=== PATIENT | female | born 1995 | race Caucasian/White ===

== ENCOUNTER 2018-04-06 11:42 | Inpatient (IN) | payer OTHER ==
--- NOTE | 2018-04-06 12:30 | HP ---
General Information - Reason for Visit Elective induction - General Information Maternal Age: 22 Grav: 4 Para: 1 SAB: 1 IEA: 1 Estimated Due Date: 04/10/18 Determined By: LMP Maternal Blood Type and Rh: O Negative - Results this Serology/RPR Result: Non-Reactive Rubella Result: Immune HBsAg Result: Negative HIV Result: Negative GBS Culture Result: Negative Past Medical History Delivery History: Hx Uncomplicated Vaginal Delivery Delivery History Comment: macrosomia Past Medical History Comment: asthma Past Surgical History Comment: D&C 03/2014 for incomplete Family History Comment: Father with MS - Antepartal Records Antepartal Records: Reviewed, Complicated by: - Sono/dates discrepancy Review of Systems Constitutional: Comfortable CV Complaint: No Respiratory: Shortness of Breath: No Gastrointestinal: No Nausea/Vomiting Genitourinary: No Leaking Fluid Musculoskeletal: Back Pain, Pressure Neurological: No Headache Movement: Normal Exam Allergies/Adverse Reactions: Allergies No Known Allergies Allergy (Verified 04/06/18 12:28) - Measurements Pre- Weight: 151 lb - Exam Breast: - - soft, no masses Extremities: No Edema Heart: Normal Rhythm/Heart Sounds HEENT: No Significant Findings Lungs: Clear Bilaterally Reflexes: DTR 2+ Thyroid: No Thyromegaly - Ultrasound/Biophysical Profile Ultrasound Status: Not Done Targeted Exam Findings See L&D Outpatient Visit Provider Note for Findings: N/A Estimated Weight: EFW 8 lbs Cervical Exam: 5cm Effacement: 90% Station: -1 Presenting Part: Vertex Membrane Status: AROM - at 1215--clear fluid EFM Findings - External Monitor Findings Baseline Heart Rate: 145 External Monitor Findings: Accelerations Present, No Pattern of Variable or Late Decelerations, Variability Moderate External Monitor Findings Comment: category 1 Contractions: None Assessment/Plan - Assessment IUP at 39 wks for elective induction - Plan Plan Comment: AROM at 1215 Will start low dose pitocin Would like epidural when uncomfortable - Date/Time of Admission Date of Admission: 04/06/18 Time of Admission: 12:20
[2018-04-06] MEDS ORDERED: Oxytocin in LR* 20 UNITS/1,000 ML BAG IVPB ONE (12:32)
[2018-04-06] MEDS ORDERED: Oxytocin in LR* 20 UNITS/1,000 ML BAG IVPB SCH ×2 (13:00→16:00)
[2018-04-06 13:03] LABS: ABS Basophils 0.1 10^3/ul (0-0.2); ABS Eosinophils 0.2 10^3/ul (0-0.6); ABS Lymphocytes 1.4 10^3/ul (1.0-4.8); ABS Monocytes 0.7 10^3/ul (0-0.8); ABS Neutrophils 6.9 10^3/ul (1.5-7.7); ABS Nucleated RBC 0 10^3/ul; Eosinophil % 2.6 % (0-6); Hematocrit 30 % (35-47); Hemoglobin 9.8 g/dl (12.0-16.0); Lymphocyte % 15.5 % (25-47); Mean Corpuscular HGB Conc 33 g/dl (31-36); Mean Corpuscular Hemoglobin 26 pg (27-31); Mean Corpuscular Volume 80 fL (80-97); Nucleated Red Blood Cells % 0; Platelet Count 213 10^3/ul (150-450); Red Blood Count 3.76 10^6/ul (4.00-5.40); Red Cell Distribution Width 19 % (10.5-15); White Blood Count 9.3 10^3/ul (3.5-10.8)
[2018-04-06] MEDS ORDERED: OBEPIDURAL* 250 ML EPIDURAL ONE (13:46)
[2018-04-06] MEDS ORDERED: Sodium Citrate/Citric Acid* 15 ML UDC PO PRN (14:33)
[2018-04-06] MEDS ORDERED: Phenylephrine IV* 40 MCG/ML 10 ML SYRINGE IV PUSH PRN ×2 (14:33)
[2018-04-06] MEDS ORDERED: Famotidine TAB* 20 MG PO PRN (14:33)
[2018-04-06] MEDS ORDERED: EPHEDrine (Pressors)* 50 MG/ML VIAL IV PUSH PRN ×2 (14:33)
[2018-04-06] MEDS ORDERED: OBEPIDURAL* 250 ML EPIDURAL SCH (15:00)
--- NOTE | 2018-04-06 15:48 | PROCNOTE ---
[facility]: Delivery Note - Nursery Level of Nursery: Regular/Bedside - Perineum Perineal Injury: None/Intact - Risk for Falls Delivered OB Patient- Risk for Falls: Low Hematocrit (<29) Fall Risk: Patient is at High Risk for Falls - Additional Delivery Notes Additional Delivery Notes: Anterior lip, 0 station at 1520 Fully, +1 at 1525, prepared for delivery and pushing begun at 1526 SVB, LMC, OA over intact perineum at 1533 Infant to maternal abd. Apgars 9/9 Placenta Emani at 1537 FF with massage, IV with pitocin running. EBL 100cc Mother and baby in stable condition
[2018-04-06] MEDS ORDERED: Witch Hazel PAD* JAR TOPICAL PRN (15:50)
[2018-04-06] MEDS ORDERED: Glycerin ADULT SUPP PR PRN (15:50)
[2018-04-06] MEDS ORDERED: Acetaminophen TAB* 325 MG PO PRN (15:50)
[2018-04-06] MEDS ORDERED: RHO D Immune Globulin (HUMAN)* 300 MCG = 1,500 I.U. INJ IM ONE (15:50)
[2018-04-06] MEDS ORDERED: Dibucaine 1% 28.35 GM TUBE PR PRN (15:50)
[2018-04-06] MEDS: Docusate CAP* 100 MG PO SCH (20:46)
[2018-04-06] MEDS: Mometasone/Formoter 200/5 MDI INH SCH (21:58)
[2018-04-07] MEDS: Ibuprofen TAB* 600 MG PO PRN ×3 (00:41→21:14)
[2018-04-07 06:53] LABS: Hematocrit 27 % (35-47); Hemoglobin 8.9 g/dl (12.0-16.0); Mean Corpuscular HGB Conc 33 g/dl (31-36); Mean Corpuscular Hemoglobin 26 pg (27-31); Mean Corpuscular Volume 80 fL (80-97); Mean Platelet Volume 7.9 um3 (7.4-10.4); Platelet Count 162 10^3/ul (150-450); Red Blood Count 3.38 10^6/ul (4.00-5.40); Red Cell Distribution Width 20 % (10.5-15); White Blood Count 8.9 10^3/ul (3.5-10.8)
[2018-04-07] MEDS: Ferrous Gluconate TAB* 324 MG TAB PO SCH ×2 (08:38→19:40)
[2018-04-07] MEDS: Docusate CAP* 100 MG PO SCH ×3 (08:38→19:40)
[2018-04-07] MEDS ORDERED: RHO D Immune Globulin (HUMAN)* 300 MCG = 1,500 I.U. INJ IM ONE (11:00)
[2018-04-07] MEDS: Mometasone/Formoter 200/5 MDI INH SCH ×2 (12:46→21:29)
[2018-04-08] MEDS: Ferrous Gluconate TAB* 324 MG TAB PO SCH (08:08)
[2018-04-08] MEDS: Docusate CAP* 100 MG PO SCH (08:08)
[2018-04-08 08:28] VITALS: BP 125/76
== END 2018-04-08 11:27 | disposition home or self-care (01) | DRG 775 ==
LOC: MCHOBOUT 11:42 → MCHOB 13:21
PROVIDERS: ADMIT Midwife; ATTEND Midwife
PROC: 3E033VJ Introduction of Other Hormone into Peripheral Vein, Percutaneous Approach (ICD-10-PCS; principal; 2018-04-06)
PROC: 10E0XZZ Delivery of Products of Conception, External Approach (ICD-10-PCS; 2018-04-06)
PROC: 10907ZC Drainage of Amniotic Fluid, Therapeutic from Products of Conception, Via Natural or Artificial Opening (ICD-10-PCS; 2018-04-06)
PROC: 4A1HX4Z Monitoring of Products of Conception, Cardiac Electrical Activity, External Approach (ICD-10-PCS; 2018-04-06)
DX: O99.52 Diseases of the respiratory system complicating childbirth (principal); J45.909 Unspecified asthma, uncomplicated; O90.81 Anemia of the puerperium; Z3A.39 39 weeks gestation of pregnancy; Z37.0 Single live birth
CPT/HCPCS: 36415; 85025; 85027; 85461; 86850; 86870; 86880; 86900; 86901; A9270-GY; J2790